=== PATIENT | female | born 1970 | race Caucasian/White ===

== ENCOUNTER 2024-05-17 05:20 | Emergency (ER) | payer OTHER, SELFPAY ==
[2024-05-17] VITALS (7 sets, daily range): BP systolic 75–119; BP diastolic 35–77; PULSE 76–97; RESP 14–20; TEMP 36.3–36.9; O2SAT 95–98; BMI 23.4
--- NOTE | 2024-05-17 | ECG_ITS ---
Test Reason : OD? Blood Pressure : */* mmHG Vent. Rate : 69 BPM Atrial Rate : 69 BPM P-R Int : 122 ms QRS Dur : 80 ms QT Int : 440 ms P-R-T Axes : 14 86 80 degrees QTcB Int : 471 ms Normal sinus rhythm Normal ECG No previous ECGs available Referred By: Stan Valles Electronically Signed By: FINESSE MAC
--- NOTE | 2024-05-17 05:30 | ED.OVERDOSE ---
HPI - Overdose General Chief Complaint: Overdose Stated Complaint: OD Time Seen by Provider: 05/17/24 05:28 Source: patient and EMS Mode of arrival: EMS Limitations: no limitations History of Present Illness ED Provider: HPI Narrative: Patient with history of depression had a bottle of wine denies any other substance abuse but noticed to have empty bottle of Seroquel of unknown dosage which was filled in 2021 according to patient that was her son's bottle not her , denies that she took any medication but noticed to be sleepy patient denies any suicidal feeling the says that she is too much drunk Per patient's sister whom she called prior to arrival told her that she taking bunch of pills and do not come tonight and come in the morning can take care of the dog when sister reached her home did not find any pills but found the empty bottles Related Data Allergies Allergy/AdvReac Type Severity Reaction Status Date / Time Penicillins Allergy Unknown Verified 05/17/24 05:32 Review of Systems Review of Systems: Yes all other systems are reviewed and are negative [facility] Social History Social History Alcohol intake: current Smoked in Last 30 Days: No Use of substances other than those prescribed or required for medical reasons: No Advance Directives: Yes Advance Directives Information Provided: Yes Advance Directives on File: No Do you have a plan to hurt others: No Plan Patient : No Physical Exam Vital Signs: Vital Signs: Last Vital Signs Temp 97.4 F 05/17/24 05:29 Pulse 78 05/17/24 06:31 Resp 18 05/17/24 06:31 BP 91/54 L 05/17/24 06:31 Pulse Ox 98 05/17/24 06:31 O2 Del Method Room Air 05/17/24 06:31 BMI result Body Mass Index 23.4 Appearance: Lethargic easily arousable. No acute distress. Intoxicated Eyes: PERRLA, No Nystagmus ENT: Pharynx normal. Oral Mucosa moist Neck: Normal inspection. Neck supple. CVS: Normal heart rate and rhythm. Pulses normal. Respiratory: No respiratory distress. Equal air entry bilateral, no wheezing/rales/rhonchi Abdomen: Soft and nontender. Bowel sounds are present, no mass palpable, no CVA tenderness no rebound tenderness no guarding Skin: Skin warm and dry. Normal skin color. Normal skin turgor. Extremities: No lower extremity edema. No calf tenderness Neuro: Oriented X 2-3. No motor deficit. No sensory deficit.No cerebellar signs , cranial nerves II-XII intact Medical Decision Making Medical Decision Making [facility] Narrative: Patient's depression with alcohol intoxication denies any overdose on any pills but noticed to have empty bottle of 2021 Seroquel of her son next to her. Because of significant depression will consult care team for evaluation her ETOH level was 258 Lab Data [facility] Lab Attestation statement: I reviewed the patient's lab results. 05/17/24 05:48 05/17/24 05:48 Labs: Lab Results 05/17/24 Range/Units 05:48 WBC 3.8 L (4.8-10.8) X10*3/uL RBC 4.01 L (4.20-5.50) X10*6/uL Hgb 13.1 (12.0-16.0) g/dl Hct 37.6 (37.0-47.0) % MCV 93.8 (80.0-98.0) fL MCH 32.7 (27.0-33.0) pg MCHC 34.8 (31.0-35.0) g/dl RDW 11.9 (11.0-16.0) % Plt Count 206 (160-400) X10*3/uL MPV 9.1 L (9.4-12.3) fL Immature Gran % (Auto) 0.0 (0.0-0.4) % Neut % (Auto) 51.8 (45-73) % Lymph % (Auto) 35.8 (20-40) % [place] % (Auto) 9.8 (2-11) % Eos % (Auto) 1.3 (0-4) % Baso % (Auto) 1.3 (0-2) % Lymph # (Auto) 1.4 (1.2-4.9) X10*3/uL [place] # (Auto) 0.4 (0.1-1.2) X10*3/uL Eos # (Auto) 0.1 (0.0-0.4) X10*3/uL Baso # (Auto) 0.1 (0.0-0.2) X10*3/uL Abs Immat Gran (auto) 0.00 (0.00-0.03) X10*3/uL Absolute Neuts (auto) 2.0 (2.0-8.3) x10*3/uL Absolute Nucleated RBC 0.000 (0.0-0.012) X10*3/uL Nucleated RBC % (auto) 0.0 (0.0-0.2) /100WBC Sodium 147 H (135-145) mmol/L Potassium 3.5 (3.3-5.1) mmol/L Chloride 112 H (96-108) mmol/L Carbon Dioxide 23 (22-29) mmol/L Anion Gap 16 (12-20) BUN 7 L (9-16) mg/dL Creatinine 0.62 (0.5-1.4) mg/dL Estim Creat Clear Calc 97.1 Estimated GFR > 60 Random Glucose 96 (60-115) mg/dL Calcium 8.1 L (8.4-10.2) mg/dL Magnesium 1.7 (1.6-2.6) mg/dL Total Bilirubin 0.3 (0.0-1.0) mg/dL AST 68 H (5-31) U/L ALT 43 H (0-31) U/L Alkaline Phosphatase 57 (39-117) U/L Total Protein 6.6 (6.5-8.0) g/dL Albumin 4.0 (3.5-5.0) g/dL Salicylates < 5.0 L (15-30) mg/dL Acetaminophen < 3 (<30) mcg/mL Ethyl Alcohol 258 mg/dL Independent Interpretation I performed an independent interpretation of an: EKG Interpretation: Normal sinus rhythm heart rate 69 beats per minute normal intervals normal axis no acute STT wave changes no acute ischemia Discharge Plan Discharge Clinical Impression: Alcohol intoxication, Depression with suicidal ideation Patient Disposition: Still a Patient Print Language: Ma[place]
--- NOTE | 2024-05-17 05:36 | PC.NURSE ---
this rn called poison controlCele at poison control states there is no recommendations at this time due to unknown amount and unknown dosage of medication.
--- NOTE | 2024-05-17 05:40 | PC.NURSE ---
pt biba from home, a&ox4, respirations even and unlabored. per ems,father called 911 due to possible overdose of seroquel. ems found empty bottle from 2021, unknown amount and unknown dosage. pt reports she has been drinking due to increased stresses but will not disclose to this rn. pt was [place] [address]. pt family members state this was intentional but pt is denying si/hi. pt changed into green gown with security, belongings placed onto shelf 2.
[2024-05-17 06:00] LABS: MANUAL DIFF FLAG NO
[2024-05-17 06:02] LABS: Basophils Absolute Auto 0.1 X10*3/uL (0.0-0.2); Basophils Percent Auto 1.3 % (0-2); Eosinophils Absolute Auto 0.1 X10*3/uL (0.0-0.4); Eosinophils Percent Auto 1.3 % (0-4); Hematocrit 37.6 % (37.0-47.0); Hemoglobin 13.1 g/dl (12.0-16.0); Lymphocytes Absolute Auto 1.4 X10*3/uL (1.2-4.9); Lymphocytes Percent Auto 35.8 % (20-40); Mean Corpuscular HGB Conc 34.8 g/dl (31.0-35.0); Mean Corpuscular Hemoglobin 32.7 pg (27.0-33.0); Mean Corpuscular Volume 93.8 fL (80.0-98.0); Mean Platelet Volume 9.1 fL (9.4-12.3); Monocytes Absolute Auto 0.4 X10*3/uL (0.1-1.2); Monocytes Percent Auto 9.8 % (2-11); Neutrophils Percent Auto 51.8 % (45-73); Platelet Count 206 X10*3/uL (160-400); Red Blood Count 4.01 X10*6/uL (4.20-5.50); Red Cell Distribution Width 11.9 % (11.0-16.0); White Blood Count 3.8 X10*3/uL (4.8-10.8)
[2024-05-17 06:21] LABS: Alanine Aminotransferase 43 U/L (0-31); Alkaline Phosphatase 57 U/L (39-117); Anion Gap 16 (12-20); Aspartate Amino Transferase 68 U/L (5-31); Bilirubin Total 0.3 mg/dL (0.0-1.0); Blood Urea Nitrogen 7 mg/dL (9-16); Calcium 8.1 mg/dL (8.4-10.2); Carbon Dioxide 23 mmol/L (22-29); Chloride 112 mmol/L (96-108); Creatinine Clr Calc Pharmacy 97.1; Estimated Glomerular Filt Rate > 60; Ethanol 258 mg/dL; Glucose Random 96 mg/dL (60-115); Magnesium 1.7 mg/dL (1.6-2.6); Potassium 3.5 mmol/L (3.3-5.1); Sodium 147 mmol/L (135-145); Total Protein 6.6 g/dL (6.5-8.0)
[2024-05-17 06:22] LABS: Acetaminophen LAB < 3 mcg/mL (<30); Salicylate < 5.0 mg/dL (15-30)
--- NOTE | 2024-05-17 06:34 | PC.NURSE ---
pt sister and brother in law updated by . pt states she would only like her sister back at this time, but sister went home to shower and will come back later. 1:1 sitter remains at bedside.
[2024-05-17] MEDS: Lactated Ringers 1,000 ML 999 ML IV ×2 (09:14→09:15)
--- NOTE | 2024-05-17 09:38 | PC.NURSE ---
Patient with 1:1 sitter at bedside. Woke up and removed IV line in right arm. Sitting up in bed stating she felt dizzy and nausous. BP low, provider aware with new orders placed. 20g IV placed in right arm. Fluids running with improvement in BP
--- NOTE | 2024-05-17 12:43 | PC.NURSE ---
Denies SI/HI, famiyl at bedside. continues to deny taking any medications last night, states only drank etoh. Ambualted to bathroom with steady gait, had been provided with urine specimin cup but returned fro bathroom stating she was unable to open the cup so did not provide a sample. Care team at bedside at this time
--- NOTE | 2024-05-18 14:12 | MHC.CARE ---
Pt has been referred to [facility] for a 3 day follow up and has been placed on 7 day alert.
== END 2024-05-17 14:53 | disposition home or self-care (01) ==
PROVIDERS: Emergency Provider Internal Medicine
DX: F10.920 Alcohol use, unspecified with intoxication, uncomplicated (principal); Y90.8 Blood alcohol level of 240 mg/100 ml or more; F32.A Depression, unspecified; R45.851 Suicidal ideations; R53.83 Other fatigue
CPT/HCPCS: 36415; 80053; 80143; 80179; 80307; 83735; 85025; 93005; 96360; 99284; 99285; J7120; S9485

== ENCOUNTER → 2024-05-17 05:41 | Outpatient (BNV) | payer OTHER, SELFPAY | PROVIDERS: Emergency Provider Internal Medicine; Visit Provider Internal Medicine | DX: Z13.6 Encounter for screening for cardiovascular disorders (principal) | CPT/HCPCS: 93010 ==